=== PATIENT | female | born 1980 | race Asian ===

== ENCOUNTER 2019-04-30 12:19 | Inpatient (IN) | payer OTHER ==
[~2019-04-30] VITALS: Ht 170.2 cm; Wt 126.1 kg
[2019-04-30 12:22] VITALS: Ht 170.2 cm; Wt 126.1 kg
--- NOTE | 2019-04-30 12:30 | NUR ---
PT SENT TO WAIT IN THE LOBBY FOR AVAILABLE BED. ALERT AND ORIENTED WITH NO DISTRESS
[2019-04-30 14:33] LABS: BASOPHIL % 0.4 % (0-2); PLATELET COUNT 448 x10^3mcL (130-400); RED CELL DISTRIBUTION WIDTH 13.4 % (11.5-14.5)
[2019-04-30 14:35] LABS: CALCIUM 9.2 mg/dL (8.5-10.1); CARBON DIOXIDE 29.4 mmol/L (21-32); CHLORIDE SERUM 104 mmol/L (98-107); CREATININE SERUM 0.6 mg/dL (0.6-1.0); GFR1 > 60 mL/min; GLUCOSE SERUM 110 mg/dL (74-106); POTASSIUM SERUM 4.3 mmol/L (3.5-5.1); SODIUM SERUM 141 mmol/L (136-145)
[2019-04-30 14:45] LABS: ALBUMIN 3.7 g/dL (3.4-5.0); ALKALINE PHOSPHATASE 141 U/L (46-116); ALT/SGPT 310 U/L (14-59); AST/SGOT 459 U/L (15-37); BILIRUBIN TOTAL 2.2 mg/dL (0.20-1.00); LIPASE 233 IU/L (73-393)
[2019-04-30 14:57] LABS: TOTAL PROTEIN, SERUM 8.4 g/dL (6.4-8.2)
--- NOTE | 2019-04-30 15:36 | NUR ---
PT UNABLE TO PROVIDE URINE SAMPLE AT THIS TIME. NO WATER PER DR HUSSEIN AT THIS TIME
[2019-04-30 16:05] LABS: CHOLESTEROL 143 mg/dL (<200); HDL CHOLESTEROL 36 mg/dL (40-60)
--- NOTE | 2019-04-30 16:19 | NUR ---
PT GIVEN WARM BLANKET AND PILLOW FOR COMFORT.
--- NOTE | 2019-04-30 16:50 | NUR ---
REPORT GIVEN TO ADAMA BARROSO RESUMING CARE OF PT IN MED SURG FLOOR
[2019-04-30 16:52] LABS: T3 TOTAL 1.07 ng/mL
[2019-04-30 16:57] LABS: FREE T4 1.62 ng/dL (0.76-1.46)
[2019-04-30 17:01] LABS: FREE THYROXINE INDEX 5.1 ug/dL (1.4-4.5); T4(THYROXINE) 13.8 ug/dL (4.7-13.3)
--- NOTE | 2019-04-30 17:25 | NUR ---
RECEIVED FROM ED WITH CC RUQ PAIN AND N/V X5 DAYS. PT IS AAOX4. RESP EVEN AND UNLABORED ON RA. DENIES CP OR PRESSURE. REPORTS "DULLNESS" TO RUQ BUT STATES NO PAIN. DENIES N/V AT THIS TIME. REPORTS VOMITING 6 TIMES THIS MORNING. LAST MEAL THIS MORNING, ATE CEREAL BUT VOMITED RIGHT AFTER. VOIDING FREELY. AMBULATORY. IV TO RAC, NO REDNESS OR SWELLING. ORIENTED TO ROOM AND SURROUNDINGS. BED IN LOW POSITION, CALL LIGHT WITHIN REACH. PT AMBULATED TO BATHROOM TO VOID. ENDORSED TO TARI BARROSO FOR CONTINUITY OF CARE.
[2019-04-30 17:29] VITALS: BP 149/95
--- NOTE | 2019-04-30 17:46 | NUR ---
RESUMED CARE OF THIS PT FROM [facility]. PT RECEIVED AWAKE, ALERT AND ORIENTED, IN NO RESP. DISTRESS. VS STABLE. NO C/O PAIN OR DISCOMFORT AT THIS TIME. IVF INFUSING WELL AND SITE CLEAR. CALL LIGHT WITHIN REACH. WILL BE ENDORSED TO INCOMING SHIFT.
--- NOTE | 2019-04-30 18:54 | NUR ---
INFLUENZA VACCINE GIVEN. PT REMAINS IN NO DISTRESS. AWAKE AND ALERT. EFRAIN. WELL WITH MEALS, NO N/V NOR ABD. DISCOMFORT. IVF INFUSING WELL AND SITE CLEAR. CALL LIGHT WITHIN REACH. WILL BE ENDORSED TO INCOMING SHIFT.
[2019-04-30 19:09] VITALS: BP 142/80
--- NOTE | 2019-04-30 21:55 | NUR ---
RECEIVED PT IN BED AAOX4 , PT DENY ABD PAIN TENDER TO TOUCH , BS ACTIVE X4, LUNG SOUNDS CTA , PIV INTACT INFUSING WELL . CALL LIGHT WITHIN PT'S REACH WILL CON'T TO MONITOR ASSIST PT WITH CARE.
--- NOTE | 2019-05-01 01:30 | NUR ---
PT'S IN BED WITH EYES CLOSED . NPO AFTER MIDNIGHT , PIV INTACT INFUSING WELL .
[2019-05-01 04:25] VITALS: BP 132/76
--- NOTE | 2019-05-01 05:55 | NUR ---
OBTAINED SURGICAL CONSENT FROM PT ORDERED .
[2019-05-01 06:41] LABS: BASOPHIL % 0.4 % (0-2); PLATELET COUNT 361 x10^3mcL (130-400); RED CELL DISTRIBUTION WIDTH 13.1 % (11.5-14.5)
--- NOTE | 2019-05-01 06:51 | NUR ---
URINE COLLECTED SENT TO THE LAB, CHG BATH COMPLETED PT TOLERATED WELL . KEPT PT NPO FOR SX THIS AM , PT DENT PAIN AT THE MOMENT , PIV INTACT INFUSING WELL.
[2019-05-01 06:59] LABS: CALCIUM 8.4 mg/dL (8.5-10.1); CARBON DIOXIDE 27.3 mmol/L (21-32); CHLORIDE SERUM 108 mmol/L (98-107); CREATININE SERUM 0.6 mg/dL (0.6-1.0); GFR1 > 60 mL/min; GLUCOSE SERUM 98 mg/dL (74-106); PHOSPHOROUS 4.2 mg/dL (2.5-4.9); SODIUM SERUM 143 mmol/L (136-145)
--- NOTE | 2019-05-01 07:28 | NUR ---
RECEIVED IN NO RESP. DISTRESS. AWAKE, ALERT AND ORIENTED. VS STABLE. NO C/O PAIN OR DISCOMFORT AT THIS TIME. CALL LIGHT WITHIN REACH. WILL CONTINUE WITH PLAN OF CARE.
[2019-05-01 07:58] LABS: ALBUMIN 2.8 g/dL (3.4-5.0); BILIRUBIN DIRECT 1.7 mg/dL (0.0-0.2); BILIRUBIN TOTAL 2.3 mg/dL (0.20-1.00); TOTAL PROTEIN, SERUM 3.8 g/dL (6.4-8.2)
[2019-05-01 08:07] VITALS: BP 124/75
[2019-05-01 08:12] LABS: AMPHETAMINE QUAL UR NONE DETECTED (See below)
[2019-05-01 08:25] LABS: microscopic required? YES; urine erythrocyte TRACE (NEGATIVE)
[2019-05-01 11:42] VITALS: BP 136/90
--- NOTE | 2019-05-01 11:48 | NUR ---
PT BACK FRO OR. IN NO RESP. DISTRESS. AWAKE ALERT AND ORIENTED. DOSING OFF AND ON. NO C/O PAIN AT THIS TIME. INCISION SITES WITH BANDAIDS X4 INTACT. SIDDHARTH DRAIN IN PLACE, DRAINING MODERATE S/S DRAINAGE. CALL LIGHT WITHIN REACH. WILL CONTINUE TO MONITOR.
--- NOTE | 2019-05-01 15:16 | NUR ---
DRESSING AROUND SIDDHARTH DRAIN NOTED SOILED WITH SERO SANG DRAINAGE. CHANGED AND DRY DRESSING APPLIED. 100ML REMOVED FROM SIDDHARTH DRAIN. PT MEDICATED WITH MORPHINE IVP FOR PAIN 10/10 AT THE SURGICAL SITE. WILL CONTINUE TO MONITOR.
[2019-05-01 16:57] VITALS: BP 157/94
--- NOTE | 2019-05-01 18:43 | NUR ---
PT REMAINS IN NO DISTRESS, SITTING AT THE EDGE OF THE BED TRYING TO HAVE LIQ. DINNER. NO C/O PAIN AT THIS TIME. FAMILY AT BEDSIDE. VS STABLE. IVF INFUSING WELL AND SITE CLEAR. INCISION SITE WITH DRESSING INTACT. SIDDHARTH DRAINED 120ML OF SS/ DRAINAGE THIS SHIFT. CALL LIGHT WITHIN REACH. WILL BE ENDORSED TO INCOMING SHIFT.
--- NOTE | 2019-05-01 19:34 | NUR ---
RECIEVED PT FROM PREVIOUS SHIFT NURSE ADAMA RN. PT A0X4, CALM AND COOPERATIVE, NO FACIAL DROOP NOTED, DENIES DILLON,N/V, OR PAIN AT THIS TIME. RR EVEN AND UNLABORED ON RA, CHEST RISING EQUALLY, DENIES SOB OR DIFFICULTY BREATHING. PT ON CLEAR LIQUID DIET POST LAP EBONY. 4 ABD SXI DRESSING CDI, SIDDHARTH DRAIN TO R ABD DRESSING WNL, SEROSANGUINEOUS DRAINAGE 5ML. PT ABLE TO AMBULATE AROUND THE UNIT. IV RAC WNL, NS RUNNING AT 100. BED IN LOWEST POSITION AND CALL LIGHT WITHIN REACH. FAMILY AT BEDSIDE, WILL CONTINUE TO MONITOR.
--- NOTE | 2019-05-01 23:44 | NUR ---
PT RESTING IN BED. RR EVEN AND UNLABORED ON RA, CHEST RISING EQUALLY, NO SIGNS OF ACUTE DISTRESS NOTED. IV RAC WNL, 100 NS. BED IN LOWEST POSITION AND CALL LIGHT WITHIN REACH. WILL CONTINUE TO MONITOR.
[2019-05-02 05:02] VITALS: BP 153/76
--- NOTE | 2019-05-02 06:35 | NUR ---
PT RESTING IN BED. AOX4, SPEECH CLEAR, NO FACIAL DROOPING NOTED. DENIES DILLON, N/V, PAIN. RR EVEN AND UNLABORED ON RA, CHEST RISING EQUALLY, DENIES SOB OR DIFFICULTY BREATHING. NO SIGNS OF ACUTE DISTRESS NOTED. 4 ABD SXI CDI, R SIDDHARTH DRAIN, DRAINED 75 ML OF SEROSANGUINEOUS DRAINAGE. IV RAC WNL, NS RUNNING AT 100. BED IN LOWEST POSITION AND CALL LIGHT WITHIN REACH. WILL ENDORSE CARE TO ONCOMING SHIFT NURSE, AND WILL CONTINUE TO MONITOR.
[2019-05-02 06:37] LABS: BASOPHIL % 0.1 % (0-2); RED CELL DISTRIBUTION WIDTH 13.5 % (11.5-14.5)
[2019-05-02 06:38] LABS: PLATELET COUNT 431 x10^3mcL (130-400)
--- NOTE | 2019-05-02 06:45 | NUR ---
WBC LAB COUNT ELEVATED FROM PREVIOUS DAY 7.[address] MARIEE MADE AWARE, NO FURTHER ORDERS AT THIS MOMENT. TEMP: 98.9
[2019-05-02 07:13] LABS: ALBUMIN 3.1 g/dL (3.4-5.0); ALKALINE PHOSPHATASE 198 U/L (46-116); ALT/SGPT 449 U/L (14-59); AST/SGOT 222 U/L (15-37); BILIRUBIN TOTAL 1.1 mg/dL (0.20-1.00); CALCIUM 8.4 mg/dL (8.5-10.1); CARBON DIOXIDE 27.5 mmol/L (21-32); CHLORIDE SERUM 104 mmol/L (98-107); CREATININE SERUM 0.7 mg/dL (0.6-1.0); GFR1 > 60 mL/min; GLUCOSE SERUM 97 mg/dL (74-106); MAGNESIUM 1.9 mg/dL (1.8-2.4); PHOSPHOROUS 3.3 mg/dL (2.5-4.9); POTASSIUM SERUM 3.6 mmol/L (3.5-5.1); SODIUM SERUM 140 mmol/L (136-145); TOTAL PROTEIN, SERUM 7.2 g/dL (6.4-8.2)
--- NOTE | 2019-05-02 08:12 | NUR ---
RECIEVED REPORT FROM NOC NURSE. PATIENT IS AWAKE ALERT AND ORIENTED. PATIENT HAS AN IV INFUSING NS AT 100cc/HOUR TO THE RAC. PATIENT IS CURRENTLY ON A CLEAR LIQUID DIET FOLLOWING LAP EBONY PROCEDURE. NO CURRENT REPORT OF PAIN AT THIS TIME. WILL CONTINUE TO MONITOR PATIENT.
[2019-05-02 09:19] VITALS: BP 141/70
--- NOTE | 2019-05-02 13:29 | NUR ---
PATIENT IS NOT TOLERATING REGULAR DIET STATES SHE IS IN PAIN WHEN SHE EATS. PATIENT DOES NOT WANT PAIN MEDICATIONS AT THIS TIME. RESIDENT PROSIDING OVER CARE PAGED OVER PATIENT NOT YET ABLE TO TOLERATE REGULAR DIET.
--- NOTE | 2019-05-02 16:22 | NUR ---
Discount pharmacy card and list to low cost medical clinics given to patient by Jamin Hendrix.
[2019-05-02 18:17] VITALS: BP 156/97
--- NOTE | 2019-05-02 19:11 | NUR ---
PATIENT CURRENTLY AWAKE ALERT AND ORIENTED AND IN BED. PATIENT REPORTS PAIN SCALE 6/10 THROBBING PAIN IN THE ABDOMEN HOWEVER DOES NOT WANT PAIN MEDICATION AT THIS TIME. 40 cc DRAINED FROM SIDDHARTH DRAIN. WILL ENDORSE ALL FURTHER CARE TO THE NOC NURSE.
--- NOTE | 2019-05-02 20:00 | NUR ---
RECEIVED PT IN BED AWAKE, ALERT, ORIENTED X4. SPEECH CLEAR. ABLE TO MAKE NEEDS KNOWN. LUNG SOUNDS CLEAR. BREATHING EASILY ON ROOM AIR. BS HYPOACTIVE IN ALL FOUR QUADS. NO ABD PAIN AT THIS TIME. X3 BANDAIDS AND ISLAND DRESSING TO ABD WITH SIDDHARTH DRAIN TO RIGHT SIDE, EMPTIED 10CC OF SANGUINEOUS FLUID. VOIDING FREELY. IV TO RAC NOT FLUSHING PROPERLY, WILL REINSERT NEW IV. SHIFT ASSESSMENT COMPLETED. CALL LIGHT WITHIN REACH. BED IS IN LOWEST POSITION. WILL CONTINUE TO MONITOR CLOSELY.
[2019-05-02 21:03] VITALS: BP 130/66
--- NOTE | 2019-05-03 01:30 | NUR ---
PT RESTING IN BED IN NO DISTRESS. BANDAIDS/DRESSING INTACT. SIDDHARTH DRAIN INTACT. CALL LIGHT WITHIN REACH. WILL CONTINUE TO MO NITOR CLOSELY.
--- NOTE | 2019-05-03 04:35 | NUR ---
PT APPEARS TO BE SLEEPING IN NO DISTRESS. ABD DRESSING INTACT. WILL CONTINUE TO MONITOR CLOSELY.
[2019-05-03 05:01] VITALS: BP 143/82
--- NOTE | 2019-05-03 06:15 | NUR ---
PT SLEPT WELL THROUGH OUT THE NIGHT. IV HL. PT PASSING GAS. NO BM AT THIS TIME. SIDDHARTH DRAIN 40CC OUTPUT FOR TOTAL SHIFT. ALL NEEDS TENDED TO. WILL ENDORSE TO INCOMING SHIFT.
[2019-05-03 06:39] LABS: ALKALINE PHOSPHATASE 178 U/L (46-116); ALT/SGPT 287 U/L (14-59); AST/SGOT 75 U/L (15-37); BILIRUBIN TOTAL 0.7 mg/dL (0.20-1.00); CALCIUM 8.4 mg/dL (8.5-10.1); CARBON DIOXIDE 28.7 mmol/L (21-32); CHLORIDE SERUM 104 mmol/L (98-107); CREATININE SERUM 0.6 mg/dL (0.6-1.0); GFR1 > 60 mL/min; GLUCOSE SERUM 100 mg/dL (74-106); MAGNESIUM 1.9 mg/dL (1.8-2.4); POTASSIUM SERUM 3.6 mmol/L (3.5-5.1); SODIUM SERUM 141 mmol/L (136-145)
[2019-05-03 06:40] LABS: ALBUMIN 2.9 g/dL (3.4-5.0)
[2019-05-03 06:53] LABS: BASOPHIL % 0.4 % (0-2); PLATELET COUNT 381 x10^3mcL (130-400); RED CELL DISTRIBUTION WIDTH 13.2 % (11.5-14.5)
[2019-05-03 08:10] VITALS: BP 144/93
--- NOTE | 2019-05-03 08:30 | NUR ---
PATIENT A/OX4 ABLE TO MAKE NEEDS KNOW, FOLLOWS COMMANDS. DENIES HEADACHE OR CP. LUNGS CTA, NO RESP DISTRESS ON RA, INCENTIVE SPIR REINFOCED, DEMONSTRATES PROPER USE. BOWEL SOUNDS ACTIVE, REPORT PASSING GAS, DRESSINGS TO ABD CDI, SIDDHARTH DRAIN WITH SEROSANGUINOUS OUTPUT MOD AMOUNT. PATIENT DENIES PAIN AT REST AT THIS TIME. REPORTS AMBULATING IN HALLWAY THIS MORNING X1 LAP, TOLERATED WELL. ATE BREAKFAST MEAL, TOLERATED WELL, DENIES N/V. VOIDS FREELY. IV ACCESS TO RAC SITE WNL. CALL LIGHT WITHIN REACH.
[2019-05-03 12:06] VITALS: BP 131/74
[2019-05-03] MEDS ORDERED: IBU600 M2 PO (12:38)
[2019-05-03] MEDS ORDERED: LEVAQUIN500 M1 PO (12:38)
[2019-05-03 13:08] VITALS: BP 131/74
--- NOTE | 2019-05-03 13:40 | NUR ---
PATIENT TOLERATED REG LUNCH MEAL WELL, DENIES PAIN OR NAUSEA. DISCHARGE ORDERS RECEIVED. SURGICAL SITES TO ABD WNL RUBEN INTACT, SIDDHARTH DRAIN IN PLACE. 20ML SS OUT AND EDUCATED PATIENT ON HOME CARE OF SIDDHARTH AND LAP SITES. PICTURE TAKEN. NEW DRESSINGS APPLIED. DISCHARGE INSTRUCTIONS, PRESCRIPTION AND APPOINTMENTS DISCUSSED, PATIENT VERBALIZED UNDERSTANDING. IV DC'D CATH INTACT. LEAVING UNIT VIA WHEELCHAIR ACCOMPANIED BY TOOL BUILDER.
== END 2019-05-03 13:44 | disposition home or self-care (01) | DRG 418 ==
LOC: ED 12:19 → MU 15:56
PROVIDERS: Emergency Medicine; Surgery; ADMIT Family Medicine
PROC: 0FT44ZZ Resection of Gallbladder, Percutaneous Endoscopic Approach (ICD-10-PCS; principal; 2019-05-01 09:00)
DX: K80.00 Calculus of gallbladder with acute cholecystitis without obstruction (principal); Z68.41 Body mass index [BMI] 40.0-44.9, adult; I10 Essential (primary) hypertension; E66.01 Morbid (severe) obesity due to excess calories
CPT/HCPCS: 84439; 90658; 94150; G0378; J0330; J0500; J0690; J1170; J1885; J2250; J2270; J2405; J2704; J2710; J3010; J3490; J7030; J7120; Q9967